=== PATIENT | female | born 1975 | race Caucasian/White ===

== ENCOUNTER 2020-08-18 23:09 | Emergency (ER) | payer OTHER, MEDICAID, SELFPAY ==
[2020-08-18 23:15] VITALS: BP 100/44; PULSE 150; RESP 21; TEMP 38.7; O2SAT 100
--- NOTE | 2020-08-18 23:30 | ED_ITS ---
HPI - General Adult General Chief complaint: Fever Stated complaint: had UTI, back pain, chills Time Seen by Provider: 08/18/20 23:17 Source: patient Mode of arrival: Ambulatory Limitations: no limitations History of Present Illness HPI narrative: 45-year-old female who has had UTI like symptoms for approximately 10 days here for evaluation of just several hours of a fairly sudden onset of chills and body aches and shaking. She continues to have dysuria. She states she has had symptoms like this in the past been normal she self medicates at home with [id number] medicines and her symptoms seemed to improve. That has not been happening this time. He also has right-sided back pain. She did take some Tylenol and ibuprofen and feels that the back pain has improved somewhat. Her chills have improved somewhat but she still feels fevers. She denies any bowel symptoms or vaginal symptoms. No nausea or vomiting. Related Data Previous Rx's Medication Instructions Recorded ondansetron 4 mg PO Q6H PRN #10 tab 08/19/20 sulfamethoxazole-trimethoprim 1 tab PO BID 14 Days #28 tab 08/19/20 [Bactrim DS] Allergies Allergy/AdvReac Type Severity Reaction Status Date / Time No Known Drug Allergies Allergy Verified 08/18/20 23:46 Review of Systems Constitutional Constitutional: Reports chills, Reports fever(s) and Reports malaise Cardiovascular Cardiovascular: Denies chest pain and Denies dyspnea Respiratory Respiratory: Denies dyspnea Gastrointestinal Gastrointestinal: Denies abdominal pain, Denies nausea and Denies vomiting Genitourinary Genitourinary: Reports dysuria, Reports urinary hesitancy and Reports urinary urgency Genitourinary: Reports dysuria, Reports urinary hesitancy, Reports urinary urgency and Denies vaginal discharge Musculoskeletal Musculoskeletal: Denies arthralgias and Denies myalgias Integumentary/Breasts Skin/Breast: Denies rash Neurologic Neurologic: Denies behavioral changes Psychiatric Psychiatric: Denies behavioral changes Hematologic/Lymphatic Hematologic/Lymphatic: Denies easy bleeding and Denies easy bruising Allergic/Immunologic Allergic/Immunologic: Denies urticaria Patient History Medical History Healthy adult (Acute) Social History Smoking Status: Current every day smoker Smoking Status: Current every day smoker alcohol intake frequency: a few times a month Substance Use Type: does not use Exam Initial Vital Signs Initial Vital Signs: Vital Signs Temperature 101.7 F H 08/18/20 23:15 Pulse Rate 150 H 08/18/20 23:15 Respiratory Rate 21 08/18/20 23:15 Blood Pressure 100/44 L 08/18/20 23:15 Pulse Oximetry 100 08/18/20 23:15 Const General: cooperative and comfortable Limitations: mental status not altered HENMT Head: normal to inspection and normocephalic Resp Effort & Inspection: normal respiratory effort Auscultation: clear to auscultation bilaterally Cardio Rate: tachycardic Rhythm: regular rhythm Pulses: radial pulses present GI Inspection: non-distended Palpation: soft Back/Spine/Pelvis Back: CVA tenderness right Skin Lesions: no lesions Rashes: no rashes Neuro General: patient alert, patient awake and patient oriented x3 Cognition: normal cognition Speech: speech normal Extrem General: normal to inspection and capillary refill normal Psych Appearance: grossly normal and well kempt Course Orders Ordered: ED Orders 08/18/20 23:25 Complete Blood Count AUTO DIFF Stat Comprehensive Metabolic Panel Stat Lactate (Lactic Acid) Stat Lipase Stat Procalcitonin Stat 08/18/20 23:28 EKG-12 Lead Stat 08/18/20 23:34 Test Urine Stat 08/18/20 23:42 Urinalysis and Microscopic Stat Urine Culture Stat 08/18/20 23:43 Blood Culture Stat Discontinued Medications Acetaminophen (Tylenol) 650 mg PO NOW ONE Stop: 08/18/20 23:27 Last Admin: 08/18/20 23:44 Dose: 650 mg Documented by: SOCO Sodium Chloride (Normal Saline 0.9%) 1,000 mls @ 1,000 mls/hr IV BOLUS ONE Stop: 08/19/20 00:25 Last Infusion: 08/19/20 00:56 Dose: 0 mls/hr Documented by: Admin: 08/18/20 23:45 Dose: 1,000 mls/hr Documented by: SOCO Ceftriaxone Sodium/Dextrose (Rocephin) 1 gm in 50 mls @ 100 mls/hr IV NOW ONE Stop: 08/19/20 00:05 Last Infusion: 08/19/20 00:20 Dose: 0 mls/hr Documented by: Admin: 08/18/20 23:44 Dose: 100 mls/hr Documented by: SOCO Vital Signs Vital signs: Vital Signs - 8 hr 08/18/20 23:15 08/19/20 00:25 08/19/20 00:30 Temperature 101.7 F H 99.3 F Pulse Rate 150 H 110 H 111 H Respiratory Rate 21 Blood Pressure 100/44 L 109/53 L 111/55 L Pulse Oximetry 100 99 99 08/19/20 00:50 Temperature 99.3 F Pulse Rate Respiratory Rate Blood Pressure Pulse Oximetry Medical Decision Making Lab Data Lab results reviewed: Yes I reviewed the patient's lab results. Result diagrams: 08/18/20 23:25 08/18/20 23:25 Labs: Lab Results 08/18/20 08/18/20 08/18/20 Range/Units 23:25 23:25 23:25 WBC 10.0 (4.5-11.0) X10^3/uL RBC 4.14 (4.0-5.2) X10^6/uL Hgb 13.0 (12.0-16.0) g/dL Hct 38.0 (36-46) % MCV 91.6 (80-100) fL MCH 31.4 (26-34) PG MCHC 34.3 (30-36) % RDW 12.0 (11.6-14.8) % Plt Count 183 (150-400) X10^3/uL Neut % (Auto) 81.7 H (50-75) % Lymph % (Auto) 15.5 L (25-40) % [place] % (Auto) 2.2 L (3-14) % Eos % (Auto) 0.2 L (2-4) % Baso % (Auto) 0.4 (0-2) % Neut # (Auto) 8200 H (4551-8773) /uL Lymph # (Auto) 1600 (4613-5058) /uL [place] # (Auto) 200 (0-900) /uL Eos # (Auto) 0 (0-450) /uL Baso # (Auto) 0 (0-100) /uL Sodium 138 (137-145) mmol/L Potassium 3.7 (3.4-5.1) mmol/L Chloride 105 (98-107) mmol/L Carbon Dioxide 26 (22-32) mmol/L BUN 11 (7-17) mg/dL Creatinine 0.58 (0.52-1.04) mg/dL Estimated GFR > 60.0 (>60) mL/min BUN/Creatinine Ratio 19.0 (6-22) Glucose 113 H (70-100) mg/dL Lactate (0.7-2.1) mmol/L Calcium 9.3 (8.4-10.2) mg/dL Total Bilirubin 0.7 (0.2-1.3) mg/dL AST 82 H (14-36) IU/L ALT 82 H (<35) IU/L Alkaline Phosphatase 59 (38-126) U/L Total Protein 7.8 (6.3-8.2) g/dL Albumin 4.5 (3.5-5.0) g/dL Globulin 3.3 (1.7-4.1) g/dL Albumin/Globulin Ratio 1.4 (1.0-2.8) Lipase 94 (23-300) U/L Procalcitonin 0.06 (<0.5) ng/mL Urine Color Urine Appearance Urine pH (4.5-8.0) Ur Specific [place] (1.000-1.035) Urine Protein (Negative) Urine Glucose (UA) (Negative) g/dL Urine Ketones (NEGATIVE) Urine Occult Blood (Negative) Urine Nitrate (Negative) Urine Bilirubin (NEGATIVE) Urine Urobilinogen (0.2) E.U./dL Ur Leukocyte Esterase (NEGATIVE) Urine RBC (0-5/HPF) Urine WBC (0-5/HPF) Ur Squamous Epith Cells (0-5/HPF) Urine Bacteria (None) Ur Culture Indicated? Micro UA Comment Urine Test (Negative) 08/18/20 08/18/20 08/18/20 Range/Units 23:25 23:34 23:42 WBC (4.5-11.0) X10^3/uL RBC (4.0-5.2) X10^6/uL Hgb (12.0-16.0) g/dL Hct (36-46) % MCV (80-100) fL MCH (26-34) PG MCHC (30-36) % RDW (11.6-14.8) % Plt Count (150-400) X10^3/uL Neut % (Auto) (50-75) % Lymph % (Auto) (25-40) % [place] % (Auto) (3-14) % Eos % (Auto) (2-4) % Baso % (Auto) (0-2) % Neut # (Auto) (5670-5945) /uL Lymph # (Auto) (4716-5711) /uL [place] # (Auto) (0-900) /uL Eos # (Auto) (0-450) /uL Baso # (Auto) (0-100) /uL Sodium (137-145) mmol/L Potassium (3.4-5.1) mmol/L Chloride (98-107) mmol/L Carbon Dioxide (22-32) mmol/L BUN (7-17) mg/dL Creatinine (0.52-1.04) mg/dL Estimated GFR (>60) mL/min BUN/Creatinine Ratio (6-22) Glucose (70-100) mg/dL Lactate 1.1 (0.7-2.1) mmol/L Calcium (8.4-10.2) mg/dL Total Bilirubin (0.2-1.3) mg/dL AST (14-36) IU/L ALT (<35) IU/L Alkaline Phosphatase (38-126) U/L Total Protein (6.3-8.2) g/dL Albumin (3.5-5.0) g/dL Globulin (1.7-4.1) g/dL Albumin/Globulin Ratio (1.0-2.8) Lipase (23-300) U/L Procalcitonin (<0.5) ng/mL Urine Color Yellow Urine Appearance Cloudy Urine pH 5.0 (4.5-8.0) Ur Specific [place] 1.020 (1.000-1.035) Urine Protein 1+ H (Negative) Urine Glucose (UA) Negative (Negative) g/dL Urine Ketones Negative (NEGATIVE) Urine Occult Blood 3+ H (Negative) Urine Nitrate Negative (Negative) Urine Bilirubin Negative (NEGATIVE) Urine Urobilinogen 0.2 (0.2) E.U./dL Ur Leukocyte Esterase 2+ H (NEGATIVE) Urine RBC 1-5/hpf (0-5/HPF) Urine WBC 30-100/hpf H (0-5/HPF) Ur Squamous Epith Cells 1-5 /hpf (0-5/HPF) Urine Bacteria Many (>30) H (None) Ur Culture Indicated? Culture not indicate Micro UA Comment * Urine Test Negative (Negative) ECG Data Attestation: I personally reviewed and interpreted this ECG as follows: Prior ECG tracings: not available for review Interpretation: Sinus tachycardia Ventricular rate of 135 Normal axis Normal QRS Normal QTC No ST T wave changes MDM Narrative Medical decision making narrative: Patient's urinalysis is concerning for infection. A culture was obtained and was pending at the time of discharge. Patient was informed that if the culture grows out a bacteria that was not susceptible to the antibiotics she was discharged home on that we would contact her to let her know. Her lactate was unremarkable. Does not have a leukocytosis. She does have right-sided flank pain and given her urinalysis and other symptoms I do have suspicion for pyelonephritis. She has not had any nausea. She tolerated oral intake here in the ER. Was febrile and tachycardic upon arrival however this improved with Tylenol. She states she does feel better after the fluids and Tylenol. Had a long discussion with her and her regarding her symptoms. Will discharge home with antibiotics and nausea medicine to take as needed. She was given return precautions and follow-up instructions. She expressed understanding and agreement. Discharge Plan Departure Patient Disposition: Home Clinical Impression: Pyelonephritis Discharge Date/Time: 08/19/20 01:02 Instructions: DI for Kidney Infection Activity Restrictions/Additional Instructions: Recommend that you take the antibiotics as directed and the nausea medication as needed. Be sure to increase your fluid intake. You can take Tylenol and/or ibuprofen for any discomfort. Return to the emergency department for any new or worsening symptoms Prescriptions: New sulfamethoxazole-trimethoprim [Bactrim DS] 800-160 mg tablet 1 tab PO BID 14 Days Qty: 28 RF: 0 ondansetron 4 mg tablet,disintegrating 4 mg PO Q6H PRN (Reason: nausea and vomiting) Qty: 10 RF: 0
--- NOTE | 2020-08-18 23:35 | PC.NURSE ---
Patient reports noticing burning, urgency and frequency about on week ago. Thought she was on the mend but began to have flank pain which was manageable. Today started getting rigors/chills and fever.
[2020-08-18 23:38] LABS: Add Manual Diff / Slide Review NO; Basophils Absolute Auto 0 /uL (0-100); Basophils Percent Auto 0.4 % (0-2); Eosinophils Absolute Auto 0 /uL (0-450); Eosinophils Percent Auto 0.2 % (2-4); Lymphocytes Absolute Auto 1600 /uL (1100-4500); Lymphocytes Percent Auto 15.5 % (25-40); Mean Corpuscular HGB Conc 34.3 % (30-36); Mean Corpuscular Hemoglobin 31.4 PG (26-34); Mean Corpuscular Volume 91.6 fL (80-100); Monocytes Absolute Auto 200 /uL (0-900); Monocytes Percent Auto 2.2 % (3-14); Neutrophils Absolute Auto 8200 /uL (1500-7000); Neutrophils Percent Auto 81.7 % (50-75); Platelet Count 183 X10^3/uL (150-400); Red Blood Cell Count 4.14 X10^6/uL (4.0-5.2)
[2020-08-18] MEDS: ACETAMINOPHEN 325 MG TABLET 650 MG PO (23:44)
[2020-08-18] MEDS: CEFTRIAXONE 1 GM/50 ML FROZ.PIGGY IV (23:44)
[2020-08-18] MEDS: SODIUM CHLORIDE 0.9% 1,000 ML 1000 ML IV (23:45)
[2020-08-18 23:46] LABS: Lactate (Lactic Acid) 1.1 mmol/L (0.7-2.1)
[2020-08-18 23:47] LABS: Bilirubin Urine UA NEGATIVE (NEGATIVE); Color Urine UA YELLOW; Glucose Urine UA NEGATIVE (Negative); Ketones Urine UA NEGATIVE (NEGATIVE); Leukocyte Esterase Urine UA 2+ (NEGATIVE); Nitrite Urine UA NEGATIVE (Negative); Occult Blood Urine UA 3+ (Negative); Protein Urine UA 1+ (Negative); Urobilinogen Urine UA 0.2 E.U./dL (0.2)
[2020-08-18 23:49] LABS: Alanine Aminotransferase 82 IU/L (<35); Albumin 4.5 g/dL (3.5-5.0); Albumin Globulin Ratio 1.4 (1.0-2.8); Alkaline Phosphatase 59 U/L (38-126); Aspartate Aminotransferase 82 IU/L (14-36); Bilirubin Total 0.7 mg/dL (0.2-1.3); Blood Urea Nitrogen 11 mg/dL (7-17); Calcium 9.3 mg/dL (8.4-10.2); Carbon Dioxide 26 mmol/L (22-32); Chloride 105 mmol/L (98-107); Estimated Glomerular Filt Rate > 60.0 mL/min (>60); Globulin 3.3 g/dL (1.7-4.1); Glucose 113 mg/dL (70-100); HEMOLYSIS < 15 (0-50); Lipase 94 U/L (23-300); Potassium 3.7 mmol/L (3.4-5.1); Sodium 138 mmol/L (137-145); Total Protein 7.8 g/dL (6.3-8.2)
[2020-08-18 23:49] LABS: Appearance Urine UA Cloudy
[2020-08-18 23:50] LABS: Pregnancy Test Urine Negative (Negative)
[2020-08-18 23:57] LABS: RBC Urine 1-5/HPF (0-5/HPF); WBC Urine 30-100/HPF (0-5/HPF)
[2020-08-18 23:58] LABS: Bacteria Urine Many (>30); Squamous Epithelial Cell Urine 1-5 /HPF (0-5/HPF)
[2020-08-19 00:05] LABS: Procalcitonin 0.06 ng/mL (<0.5)
[2020-08-19 00:25] VITALS: BP 109/53; PULSE 110; O2SAT 99
[2020-08-19 00:30] VITALS: BP 111/55; PULSE 111; TEMP 37.4; O2SAT 99
[2020-08-19 00:50] VITALS: TEMP 37.4
== END 2020-08-19 01:02 | disposition home or self-care (01) ==
PROVIDERS: Emergency Provider Emergency Medicine
DX: N12 Tubulo-interstitial nephritis, not specified as acute or chronic (principal); M54.9 Dorsalgia, unspecified; R50.9 Fever, unspecified; R00.0 Tachycardia, unspecified; R30.0 Dysuria; R39.15 Urgency of urination
CPT/HCPCS: 36415; 80053; 81001; 81025; 83605; 83690; 84145; 85025; 87040; 87077; 87086; 87186; 93005; 96361; 96365; 99284

== ENCOUNTER → 2021-09-21 11:05 | Outpatient (CLI) | payer OTHER, MEDICAID, SELFPAY ==
--- NOTE | 2021-09-21 11:06 | DI.US.S_ITS ---
PROCEDURE: US OB <= 14 WEEKS FETUS INDICATIONS: DATING OUTSIDE/PRIOR DATING DATA: Last menstrual period (LMP): 07/25/2021 LMP-based estimated date of delivery (PAULINA): 05/01/2022 First dating scan (date and location): 09/21/2021 Estimated date of delivery (PAULINA) from first dating scan: 05/01/2022 TECHNIQUE: Real-time scanning was performed of the fetus and maternal pelvic organs, with image documentation. Endovaginal scanning was also performed to better visualize the fetus and maternal ovaries. COMPARISON: None. FINDINGS: Embryo: Single intrauterine gestational sac is seen with fetus and yolk sac seen. [place]-rump length measures 1.8 cm. Estimated gestational age is 8 weeks, 2 days. Heart rate: 192 beats per minute. Hypoechoic area is noted in left myometrium measures 2.1 x 1.8 x 0.7 cm in size and may represent a small perigestational hemorrhage. Measurement variability in dating: +/- 4 weeks by LMP, +/- 7 days by mean sac diameter (use before 6 weeks gestation if crown-rump length not able to be measured), +/- 5 days by crown-rump length (up to 8 weeks 6 days gestation), +/- 7 days by crown-rump length (up to 13 weeks 6 days gestation). Maternal organs: Right ovary is visualized and is within normal limits. Possible small corpus luteum in left ovary is noted. IMPRESSION: 1. Single live intrauterine with fetus and yolk sac seen. heart rate is 192 beats per minute. Estimated gestational age based on current study is 8 weeks, 2 days. 2. Small perigestational hemorrhage as above. Possible small corpus luteum in left ovary. Dictated by: Ino Marcano M.D. on 09/21/2021 at 16:03 Approved by: Ino Marcano M.D. on 09/21/2021 at 16:05
== END ==
PROVIDERS: Referring Provider Obstetrics & Gynecology; Visit Provider Obstetrics & Gynecology
DX: Z34.81 Encounter for supervision of other normal pregnancy, first trimester (principal); Z3A.08 8 weeks gestation of pregnancy
CPT/HCPCS: 76801; 76817

== ENCOUNTER 2021-10-08 17:40 | Emergency (ER) | payer OTHER, MEDICAID, SELFPAY ==
--- NOTE | 2021-10-08 17:48 | DI.US.S_ITS ---
PROCEDURE: US OB <= 14 WEEKS FETUS INDICATIONS: CRAMPING, HEAVY BLEEDING OUTSIDE/PRIOR DATING DATA: Last menstrual period (LMP): July 25, 2021. LMP-based estimated date of delivery (PAULINA): May 01, 2022. First dating scan (date and location): [facility]; September 21, 2021. Estimated date of delivery (PAULINA) from first dating scan: May 01, 2022. TECHNIQUE: Real-time scanning was performed of the fetus and maternal pelvic organs, with image documentation. Endovaginal scanning was also performed to better visualize the fetus and maternal ovaries. COMPARISON: [facility], US, US OB <= 14 WEEKS FETUS, 09/21/2021, 11:23. FINDINGS: Embryo: No sonographic evidence of a pole. Maternal organs: Thickening of the endometrium, measuring 3.1 cm, most consistent with blood products. The right ovary is not visualized. The left ovary is within normal limits. IMPRESSION: Thickening of the endometrium, most consistent with blood products and compatible with missed . We strive to produce accurate, complete, and clear reports of imaging services. To assist us in improving patient care, this report was composed using standard report templates and voice recognition software. Therefore, it may contain abnormal punctuation, insertions and/or omissions. Occasional wrong-word or sound-alike substitutions may occur. Though we review the report and make efforts to correct it, we do recommend that the report be read carefully in proper context to recognize any text inaccuracies. Dictated by: Dominik Rice M.D. on 10/08/2021 at 19:27 Approved by: Dominik Rice M.D. on 10/08/2021 at 19:30
[2021-10-08 17:50] VITALS: BP 126/59; PULSE 85; RESP 14; TEMP 36.4; O2SAT 100; BMI 22.0
--- NOTE | 2021-10-08 18:04 | ED_ITS ---
HPI - General Chief complaint: Vaginal Bleeding Stated complaint: 11 weeks , cramping and bleeding Time Seen by Provider: 10/08/21 18:04 Source: patient Mode of arrival: Ambulatory Limitations: no limitations History of Present Illness HPI Narrative: 46F former smoker without significant medical history presents with her and a chief complaint of heavy vaginal bleeding with the passage of clots and pelvic cramping becoming severe this evening. She is a at 11 weeks and has recently established with a local Ob. She states she has been having some minimal spotting over the past few days and had initial ultrasound a few weeks ago. She has no fever or chills. She denies any dizziness, weakness or lightheadedness. She states that she is bleeding heavily, certainly through more than 1 pad per hour with heavy clots but denies any tissue. Related Data Home Medications Medication Instructions Recorded Confirmed prenat.vits,marcos,atj-[id number] 1 tab PO DAILY 10/06/21 10/06/21 Previous Rx's Medication Instructions Recorded ondansetron 4 mg disintegrating 4 mg PO Q6H PRN #10 tab 08/19/20 tablet Allergies Allergy/AdvReac Type Severity Reaction Status Date / Time No Known Drug Allergies Allergy Verified 10/08/21 17:50 Review of Systems Review of Systems Narrative: GENERAL: Denies chills, fatigue, malaise, fever, sweats. HEENT: Denies sinus pain, ear pain, sore throat, difficulty swallowing, dizziness. RESPIRATORY: Denies dyspnea, cough, wheezing, hemoptysis, sputum. CARDIOVASCULAR: Denies chest pain, palpitations, orthopnea, edema, GASTROINTESTINAL: Denies nausea, vomiting, abdominal pain, diarrhea, constipation, melena. : See HPI MUSCULOSKELETAL: denies weakness, joint pain, or bony pain SKIN: Denies rash, skin lesions, or other NEUROLOGIC: Denies weakness, headache, numbness, change in speech, confusion, seizures, incoordination. PSYCHIATRIC: No concerning psychosocial issues. 12 point review of systems is negative except for those stated above Exam Narrative Exam Narrative: GENERAL: [46 year old patient appears stated age. Well-developed patient, in mild distress. Tearful, obviously uncomfortable HEAD: Atraumatic. Normocephalic. EYES: Pupils equal round and reactive. Extraocular motions intact. No scleral ic terus. No injection or drainage. ENT: Nose without bleeding, purulent drainage. Throat without erythema, tonsillar hypertrophy or exudate. Airway patent. NECK: Trachea midline. Non tender CARDIOVASCULAR: Regular rate and rhythm without murmurs, gallops, or rubs. RESPIRATORY: Clear to auscultation. Breath sounds equal bilaterally. No wheezes, rales, or rhonchi. GASTROINTESTINAL: Abdomen soft, miold tenderness in suprapubic region, nondistended. EXTREMITIES: No edema or joint tenderness. BACK: Nontender without deformity or crepitance. No flank tenderness. NEURO: AOx3. SKIN: No rash or erythema of visible areas Initial Vital Signs Initial Vital Signs: Vital Signs Temperature 97.6 F 10/08/21 17:50 Pulse Rate 85 10/08/21 17:50 Respiratory Rate 14 10/08/21 17:50 Blood Pressure 126/59 L 10/08/21 17:50 Pulse Oximetry 100 10/08/21 17:50 Course Orders Ordered: ED Orders 10/08/21 17:48 US OB <= 14 weeks fetus Stat 10/08/21 18:30 ABO RH Type Stat Complete Blood Count AUTO DIFF Stat Comprehensive Metabolic Panel Stat HCG Quantitative /Beta subunit Stat 10/08/21 18:48 Urine Microscopic Stat 10/08/21 21:17 HH [Hemoglobin and Hematocrit] Stat Discontinued Medications Ketorolac Tromethamine (Ketorolac 30 Mg/Ml Vial) 15 mg IV NOW ONE Stop: 10/08/21 21:57 Last Admin: 10/08/21 22:05 Dose: Not Given Documented by: AMY Ketorolac Tromethamine (Ketorolac 30 Mg/Ml Vial) 30 mg IM NOW ONE Stop: 10/08/21 22:07 Last Admin: 10/08/21 22:09 Dose: 30 mg Documented by: AMY Misoprostol (Misoprostol 200 Mcg Tablet) 800 mcg PO NOW ONE Stop: 10/08/21 19:43 Last Admin: 10/08/21 20:10 Dose: 800 mcg Documented by: AMY Rho Immune Globulin (Rho(D) Immune Globulin 1,500 Unit Syringe) 1,500 unit IM NOW ONE Stop: 10/08/21 19:41 Last Admin: 10/08/21 20:10 Dose: 1,500 unit Documented by: AMY Reevaluation(s) Reevaluation #1: bleeding has slowed significantly after above stated therapies. Patient no longer bleeding while lying flat, she does passed some small clots when she sta nds up however. She does have episodes of cramping but largely is feeling better. Consultations Consultation #1: discussed with manager of employee relations OB (Larry) upon receipt of US. Given stable vitals and H/H she recommends Rhogam, Cytotec 800 PO, repeat H/H in 1-2 hours, pain control and call back Vital Signs Vital signs: Vital Signs - 8 hr 10/08/21 17:50 10/08/21 20:52 10/08/21 21:17 Temperature 97.6 F 98 F Pulse Rate 85 82 Respiratory Rate 14 18 Blood Pressure 126/59 L 127/58 L Pulse Oximetry 100 98 10/08/21 22:17 Temperature Pulse Rate 82 Respiratory Rate 16 Blood Pressure 113/48 L Pulse Oximetry 99 MDM - OB/Uterine Contractions Lab Data Result diagrams: 10/08/21 21:17 10/08/21 18:30 Labs: Lab Results 10/08/21 10/08/21 10/08/21 Range/Units 18:30 18:30 18:30 WBC 8.3 (4.5-11.0) X10^3/uL RBC 3.98 L (4.0-5.2) X10^6/uL Hgb 12.7 (12.0-16.0) g/dL Hct 36.0 (36-46) % MCV 90.4 (80-100) fL MCH 31.9 (26-34) PG MCHC 35.3 (30-36) % RDW 13.0 (11.6-14.8) % Plt Count 178 (150-400) X10^3/uL Neut % (Auto) 60.7 (50-75) % Lymph % (Auto) 31.2 (25-40) % [place] % (Auto) 5.6 (3-14) % Eos % (Auto) 1.4 L (2-4) % Baso % (Auto) 1.1 (0-2) % Neut # (Auto) 5000 (0532-8650) /uL Lymph # (Auto) 2600 (7796-9915) /uL [place] # (Auto) 500 (0-900) /uL Eos # (Auto) 100 (0-450) /uL Baso # (Auto) 100 (0-100) /uL Sodium 141 (137-145) mmol/L Potassium 3.4 (3.4-5.1) mmol/L Chloride 108 H (98-107) mmol/L Carbon Dioxide 25 (22-32) mmol/L BUN 8 (7-17) mg/dL Creatinine 0.50 L (0.52-1.04) mg/dL Estimated GFR > 60.0 (>60) mL/min BUN/Creatinine Ratio 16.0 (6-22) Glucose 97 (70-100) mg/dL Calcium 9.4 (8.4-10.2) mg/dL Total Bilirubin 0.3 (0.2-1.3) mg/dL AST 21 (14-36) IU/L ALT 23 (<35) IU/L Alkaline Phosphatase 35 L (38-126) U/L Total Protein 7.1 (6.3-8.2) g/dL Albumin 4.4 (3.5-5.0) g/dL Globulin 2.7 (1.7-4.1) g/dL Albumin/Globulin Ratio 1.6 (1.0-2.8) HCG, Quant 3030 mIU/mL Urine RBC (0-5/HPF) Urine WBC (0-5/HPF) Urine Bacteria (None) Ur Culture Indicated? Blood Type O Negative 10/08/21 10/08/21 Range/Units 18:48 21:17 WBC (4.5-11.0) X10^3/uL RBC (4.0-5.2) X10^6/uL Hgb 12.4 (12.0-16.0) g/dL Hct 35.6 L (36-46) % MCV (80-100) fL MCH (26-34) PG MCHC (30-36) % RDW (11.6-14.8) % Plt Count (150-400) X10^3/uL Neut % (Auto) (50-75) % Lymph % (Auto) (25-40) % [place] % (Auto) (3-14) % Eos % (Auto) (2-4) % Baso % (Auto) (0-2) % Neut # (Auto) (7956-3531) /uL Lymph # (Auto) (9175-1639) /uL [place] # (Auto) (0-900) /uL Eos # (Auto) (0-450) /uL Baso # (Auto) (0-100) /uL Sodium (137-145) mmol/L Potassium (3.4-5.1) mmol/L Chloride (98-107) mmol/L Carbon Dioxide (22-32) mmol/L BUN (7-17) mg/dL Creatinine (0.52-1.04) mg/dL Estimated GFR (>60) mL/min BUN/Creatinine Ratio (6-22) Glucose (70-100) mg/dL Calcium (8.4-10.2) mg/dL Total Bilirubin (0.2-1.3) mg/dL AST (14-36) IU/L ALT (<35) IU/L Alkaline Phosphatase (38-126) U/L Total Protein (6.3-8.2) g/dL Albumin (3.5-5.0) g/dL Globulin (1.7-4.1) g/dL Albumin/Globulin Ratio (1.0-2.8) HCG, Quant mIU/mL Urine RBC 30-100/hpf H (0-5/HPF) Urine WBC None seen (0-5/HPF) Urine Bacteria None seen (None) Ur Culture Indicated? Cult not indicated Blood Type Urine Dip Bedside Urine Glucose Negative Bedside Urine Bilirubin - Negative Bedside Urine Ketone - Negative Urine Specific [place] 1.010 Bedside Urine Occult Blood +++ Bedside Urine pH 6.0 Bedside Urine Protein ++ 100 Bedside Urine Urobilinogen - Negative Bedside Urine Nitrite - Negative Bedside Urine Leukocytes + 70 Esterase MDM Narrative Medical decision making narrative: Patient is at 11 weeks with evidence of heavy bleeding in the aftermath of a missed AB. Ultrasound demonstrates no retained products or IUP, only evidence of clot. Patient H and H remained stable, vitals improved, bleeding slowed significantly and no indication for D&C. She is given extensive return precautions and questions answered to her apparent satisfaction Discharge Plan Departure Patient Disposition: Home Clinical Impression: , missed Instructions: DI for Miscarriage Activity Restrictions/Additional Instructions: *You have been diagnosed with [pelvic cramping and bleeding which is unfortunately due to a miscarriage in the process. *What to do: *Please continue to take your regular medications as directed. [ ] New medication prescriptions sent to your pharmacy: [ ] [ ] New medication written as a paper prescription [ x] No new medications given *Please follow up with Dr. Castro' office in 2-3 days, call for an appointment. Let them know you were seen in the Emergency Department and that we ask that you be seen in follow up. We will electronically transmit a record of today's note if your PCP is in our system *Return to Emergency Department if you should have any new, worsening or concerning symptoms, such as [fever greater than 101 F, dizziness, lightheadedn ess, unexplained sweating, significant bleeding (saturating 1 pad or more per hour), or other bothersome symptoms Prescriptions: No Action prenat.vits,marcos,[id number] Tablet 1 tab PO DAILY 0RF ondansetron 4 mg tablet,disintegrating 4 mg PO Q6H PRN (Reason: nausea and vomiting) Qty: 10 0RF Referrals: Melyssa Castro MD [Physician] -
[2021-10-08 18:39] LABS: Add Manual Diff / Slide Review NO; Basophils Absolute Auto 100 /uL (0-100); Basophils Percent Auto 1.1 % (0-2); Eosinophils Absolute Auto 100 /uL (0-450); Eosinophils Percent Auto 1.4 % (2-4); Hemoglobin 12.7 g/dL (12.0-16.0); Lymphocytes Absolute Auto 2600 /uL (1100-4500); Lymphocytes Percent Auto 31.2 % (25-40); Mean Corpuscular HGB Conc 35.3 % (30-36); Mean Corpuscular Hemoglobin 31.9 PG (26-34); Mean Corpuscular Volume 90.4 fL (80-100); Monocytes Absolute Auto 500 /uL (0-900); Monocytes Percent Auto 5.6 % (3-14); Neutrophils Absolute Auto 5000 /uL (1500-7000); Neutrophils Percent Auto 60.7 % (50-75); Platelet Count 178 X10^3/uL (150-400); Red Blood Cell Count 3.98 X10^6/uL (4.0-5.2); White Blood Cell Count 8.3 X10^3/uL (4.5-11.0)
[2021-10-08 18:52] LABS: Alanine Aminotransferase 23 IU/L (<35); Albumin 4.4 g/dL (3.5-5.0); Albumin Globulin Ratio 1.6 (1.0-2.8); Alkaline Phosphatase 35 U/L (38-126); Aspartate Aminotransferase 21 IU/L (14-36); Bilirubin Total 0.3 mg/dL (0.2-1.3); Blood Urea Nitrogen 8 mg/dL (7-17); Calcium 9.4 mg/dL (8.4-10.2); Carbon Dioxide 25 mmol/L (22-32); Chloride 108 mmol/L (98-107); Estimated Glomerular Filt Rate > 60.0 mL/min (>60); Globulin 2.7 g/dL (1.7-4.1); Glucose 97 mg/dL (70-100); HEMOLYSIS < 15 (0-50); Potassium 3.4 mmol/L (3.4-5.1); Sodium 141 mmol/L (137-145); Total Protein 7.1 g/dL (6.3-8.2)
[2021-10-08 19:04] LABS: Bacteria Urine None Seen; Culture Indicated Urine Cult Not Indicated; RBC Urine 30-100/HPF (0-5/HPF); WBC Urine None Seen (0-5/HPF)
[2021-10-08 19:12] LABS: HCG Quantitative /Beta subunit 3030 mIU/mL
[2021-10-08] MEDS: RHO(D) IMMUNE GLOBULIN 1,500 UNIT SYRINGE 1500 UNIT IM (20:10)
[2021-10-08] MEDS: miSOPROStoL 200 MCG TABLET 800 MCG PO (20:10)
--- NOTE | 2021-10-08 20:47 | PC.NURSE ---
Pt reports passing blood and clots during trips to the bathroom.
[2021-10-08 20:52] VITALS: BP 127/58; PULSE 82; RESP 18; O2SAT 98
[2021-10-08 21:17] VITALS: TEMP 36.6
[2021-10-08 21:28] LABS: Hematocrit 35.6 % (36-46); Hemoglobin 12.4 g/dL (12.0-16.0)
[2021-10-08] MEDS: KETOROLAC 30 MG/ML VIAL IM (22:09)
[2021-10-08 22:17] VITALS: BP 113/48; PULSE 82; RESP 16; O2SAT 99
== END 2021-10-08 22:30 | disposition home or self-care (01) ==
PROVIDERS: Emergency Provider Emergency Medicine
DX: O02.1 Missed abortion (principal); Z3A.11 11 weeks gestation of pregnancy
CPT/HCPCS: 36415; 76801; 76830; 80053; 81003; 81015; 84702; 85014; 85018; 85025; 86900; 86901; 96372; 99284; J1885; J2790; S0191

== ENCOUNTER 2021-10-09 02:16 | Observation (INO) | payer OTHER, MEDICAID, SELFPAY ==
[2021-10-09] VITALS (24 sets, daily range): BP systolic 84–120; BP diastolic 46–66; PULSE 74–101; RESP 12–18; TEMP 36.3–36.9; O2SAT 99–100; BMI 22.1; BMI 22.0
--- NOTE | 2021-10-09 | PATH_ITS ---
[facility] Accession Number: [id number] . 01 Material submitted: . body - UTERINE CONTENTS . 01 Clinical history: . VAGINAL BLEED/MISCARRIAGE . 02 Diagnosis: Uterine Contents: Products of conception identified. [facility] 10/12/2021 1123 Local . 02 Electronically signed: . Silvia Santizo MD, Pathologist NPI- [id number] . 01 Gross description: . The specimen is received in formalin, labeled uterine contents and consists of multiple gonzales-pink fragments of soft tissue and clotted blood measuring 9.0 x 8.0 x 3.0 cm in aggregate. No chorionic villi or parts are identified. Digital Forensic Examiner sections are submitted in cassettes A1-A4. ([id number]) /V 10/11/2021 0933 Local . 02 Pathologist provided ICD-10: O03.30 . 02 CPT . 249679 Performed at: 01 [facility] [address] [facility], [place], [place] [id number] MD Ming Espitia MD Phone: [phone] Performed at: 02 [facility] [address] [place], [place] [id number] MD Jennifer Brush MD Phone: [phone]
[2021-10-09] MEDS: SODIUM CHLORIDE 0.9% 1,000 ML 125 ML IV (02:30)
--- NOTE | 2021-10-09 02:40 | ED_ITS ---
HPI - Female Genitourinary General Chief complaint: OB/Uterine Contractions Stated complaint: Vaginal bleed/miscarriage Time Seen by Provider: 10/09/21 02:17 Source: patient and family Mode of arrival: EMS Limitations: no limitations History of Present Illness HPI Narrative: 46-year-old female returns by EMS for the 2nd time today for evaluation of heavy bleeding and a near syncopal episode. She had been at about 11 weeks and had some cramping and progressively worsening vaginal bleeding last evening. She was seen in the emergency department and observed for upwards of 5 hours and had very reassuring labs and vital signs. Ultrasound demonstrated a missed without any retained products or evidence of intrauterine . After consultation with on-call Ob the patient was given RhoGAM, Site attack and observed. Her bleeding slowed tremendously, she was given return precautions and sent home. She did okay for a few hours and then prior to calling EMS had an episode of very heavy vaginal bleeding and intense pain. The bleeding continues. She became very dizzy and lightheaded and nearly passed out. On arrival EMS found her to be diaphoretic and pale with a blood pressure in the 90s. Related Data Home Medications Medication Instructions Recorded Confirmed prenat.vits,marcos,[id number] 1 tab PO DAILY 10/06/21 10/06/21 Previous Rx's Medication Instructions Recorded ondansetron 4 mg disintegrating 4 mg PO Q6H PRN #10 tab 08/19/20 tablet doxycycline hyclate 100 mg capsule 100 mg PO BID 5 Days #10 cap 10/09/21 (Vibramycin) methylergonovine 0.2 mg tablet 0.2 mg PO TID 2 Days #6 tab 10/09/21 (Methergine) Allergies Allergy/AdvReac Type Severity Reaction Status Date / Time No Known Drug Allergies Allergy Verified 10/08/21 17:50 Review of Systems Review of Systems Narrative: GENERAL: Denies chills, fatigue, malaise, fever, sweats. HEENT: Denies sinus pain, ear pain, sore throat, difficulty swallowing, dizziness. RESPIRATORY: Denies dyspnea, cough, wheezing, hemoptysis, sputum. CARDIOVASCULAR: Denies chest pain, palpitations, orthopnea, edema, GASTROINTESTINAL: Denies nausea, vomiting, abdominal pain, diarrhea, constipation, melena. : See HPI MUSCULOSKELETAL: denies weakness, joint pain, or bony pain SKIN: Denies rash, skin lesions, or other NEUROLOGIC: Denies weakness, headache, numbness, change in speech, confusion, seizures, incoordination. PSYCHIATRIC: No concerning psychosocial issues. 12 point review of systems is negative except for those stated above Patient History Medical History delivery delivered Gestational diabetes Healthy adult Rh negative status during Surgical History [place] teeth extracted Family History Mother Preeclampsia Insulin resistance Father Status post cardiac surgery infant Myocardial infarction Grandmother No problems noted. Grandfather Emphysema lung Smoker Grandmother Cervical cancer Grandfather Family history unknown alcohol intake frequency: a few times a month Substance Use Type: does not use Exam Narrative Exam Narrative: GENERAL: [46 year old patient appears stated age. Ill-appearing pale and diaphoretic, tearful and obviously in distress HEAD: Atraumatic. Normocephalic. EYES: Pupils equal round and reactive. Pale conjunctiva Extraocular motions intact. No scleral icterus. No injection or drainage. ENT: Nose without bleeding, purulent drainage. Throat without erythema, tonsillar hypertrophy or exudate. Airway patent. NECK: Trachea midline. Non tender CARDIOVASCULAR: Regular rate and rhythm without murmurs, gallops, or rubs. RESPIRATORY: Clear to auscultation. Breath sounds equal bilaterally. No wheezes, rales, or rhonchi. GASTROINTESTINAL: Abdomen soft, non-tender, nondistended. PELVIC: Large amount of bright red blood in vaginal vault, poured out onto cart when speculum was inserted. Unable to view cervix.Performed with patient permission and assistance from female nursing crane rigger EXTREMITIES: No edema or joint tenderness. BACK: Nontender without deformity or crepitance. No flank tenderness. NEURO: AOx3. SKIN: No rash or erythema of visible areas Initial Vital Signs Initial Vital Signs: Vital Signs Pulse Rate 90 10/09/21 02:19 Blood Pressure 95/49 L 10/09/21 02:19 Pulse Oximetry 100 10/09/21 02:19 Course Orders Ordered: Discontinued Medications Cefazolin Sodium/Dextrose (Cefazolin 2 Gm/20 Ml Syringe) 2 gm IV NOW ONE Stop: 10/09/21 05:07 Last Admin: 10/09/21 05:41 Dose: 2 gm Documented by: NAMITA Fentanyl (Fentanyl 100 Mcg/2 Ml Inj) 50 mcg IV Q5M PRN PRN Reason: Pain, Moderate (4-6) Sodium Chloride (Normal Saline 0.9%) 1,000 mls @ 125 mls/hr IV CONT [facility] Last Infusion: 10/09/21 05:05 Dose: 0 mls/hr Documented by: Infusion: 10/09/21 03:05 Dose: 125 mls/hr Documented by: Infusion: 10/09/21 02:35 Dose: 1,000 mls/hr Documented by: Admin: 10/09/21 02:30 Dose: 125 mls/hr Documented by: PAT Tranexamic Acid 1,000 mg/ (Sodium Chloride) 100 mls @ 200 mls/hr IV NOW ONE Stop: 10/09/21 03:37 Last Infusion: 10/09/21 04:29 Dose: 0 mls/hr Documented by: Admin: 10/09/21 03:23 Dose: 200 mls/hr Documented by: PAT Lactated Ringer's (Lactated Ringers) 1,000 mls @ 100 mls/hr IV CONT [facility] Last Admin: 10/09/21 05:13 Dose: 100 mls/hr Documented by: MACK Lactated Ringer's (Lactated Ringers) 1,000 mls @ 120 mls/hr IV CONT [facility] Methylergonovine Maleate (Methylergonovine 0.2 Mg/Ml Vial) 0.2 mg IM NOW ONE Stop: 10/09/21 03:09 Last Admin: 10/09/21 03:34 Dose: 0.2 mg Documented by: PAT Metoclopramide HCl (Metoclopramide 10 Mg/2 Ml Inj) 10 mg IV NOW PRN PRN Reason: Nausea And Vomiting Ondansetron HCl (Ondansetron 4 Mg/2 Ml Inj) 4 mg IV NOW PRN PRN Reason: Nausea And Vomiting Oxytocin (Oxytocin 10 Unit/Ml Vial) 10 unit IM NOW ONE Stop: 10/09/21 03:11 Last Admin: 10/09/21 03:34 Dose: 10 unit Documented by: HGUBERN Consultations Consultation #1: upon completion of pelvic exam I placed a call to Dr. Maza (global program manager) to discuss history, physical, labs and recent imaging. He recommends TXA 1,000mg IV, Met hergine 0.2mg q4 until bleeding slows, and Pitocin 10U IM. He will come see patient Consultation #2: Dr. Maza has seen patient at bedside, performed his own pelvic and given patient's initial hesitation to go to the OR he ordered another US and repeat H/H. Vital Signs Vital signs: Vital Signs - 8 hr 10/09/21 02:19 10/09/21 02:25 10/09/21 02:30 Temperature 97.7 F Pulse Rate 90 86 84 Respiratory Rate 17 Blood Pressure 95/49 L 95/49 L Pulse Oximetry 100 100 100 10/09/21 02:37 10/09/21 02:45 10/09/21 02:50 Temperature Pulse Rate 84 79 78 Respiratory Rate Blood Pressure 84/47 L 88/52 L 89/55 L Pulse Oximetry 100 100 100 10/09/21 03:00 10/09/21 03:04 10/09/21 03:11 Temperature Pulse Rate 96 H 82 86 Respiratory Rate Blood Pressure 97/52 L 113/53 L Pulse Oximetry 100 100 100 10/09/21 03:20 10/09/21 03:30 10/09/21 03:40 Temperature Pulse Rate 74 74 92 H Respiratory Rate Blood Pressure 99/51 L 93/55 L 112/56 L Pulse Oximetry 100 100 100 10/09/21 03:50 10/09/21 04:00 10/09/21 04:10 Temperature Pulse Rate 90 96 H 96 H Respiratory Rate Blood Pressure 120/66 113/56 L 112/57 L Pulse Oximetry 100 100 100 10/09/21 04:20 10/09/21 04:30 Temperature Pulse Rate 86 97 H Respiratory Rate Blood Pressure 109/58 L 109/55 L Pulse Oximetry 100 100 MDM - Female Genitourinary Lab Data Result diagrams: 10/09/21 04:15 Labs: Lab Results 10/09/21 10/09/21 10/09/21 Range/Units 02:35 02:35 03:05 Hgb 9.9 L (12.0-16.0) g/dL Hct 29.2 L (36-46) % SARS-CoV-2 (PCR) Negative (Negative) Blood Type O Negative Antibody Screen Positive Antibody Identification Anti-D 10/09/21 Range/Units 04:15 Hgb 9.4 L (12.0-16.0) g/dL Hct 26.9 L (36-46) % SARS-CoV-2 (PCR) (Negative) Blood Type Antibody Screen Antibody Identification Discharge Plan Departure Patient Disposition: Admitted to Surgery Clinical Impression: Vaginal bleeding, , missed Admit Date/Time: 10/09/21 04:35 Admit Provider: Kendall Maza
[2021-10-09 02:53] LABS: Hematocrit 29.2 % (36-46); Hemoglobin 9.9 g/dL (12.0-16.0)
[2021-10-09 03:21] LABS: COVID19 -Nasal RAPID Negative (Negative)
[2021-10-09] MEDS: TRANEXAMIC ACID 1,000 MG in SODIUM CHLORIDE 0.9% 100 ML 200 ML IV (03:23)
[2021-10-09] MEDS: OXYTOCIN 10 UNIT/ML VIAL IM (03:34)
[2021-10-09] MEDS: METHYLERGONOVINE 0.2 MG/ML VIAL IM (03:34)
--- NOTE | 2021-10-09 03:58 | DI.US.S_ITS ---
PROCEDURE: US PELVIC LIMITED INDICATIONS: significant vaginal bleeding TECHNIQUE: Real-time transabdominal scanning was performed of the pelvic organs, with image documentation. COMPARISON: None. FINDINGS: Uterus: Uterus is anteverted and measures 12.3 x 4.4 x 5.6 cm. The endometrium is thickened and heterogeneous in appearance, measuring up to 2.0 cm in with. No internal vascularity within the endometrium. No intrauterine identified. Ovaries: The ovaries were not visualized. No adnexal masses identified. Other: There is minimal free fluid in the pelvis which appears within physiologic limits. IMPRESSION: 1. Heterogeneous thickening of the endometrium likely reflecting blood product and a possible spontaneous in progress. Recommend correlation clinically including with serial beta HCGs. 2. No intrauterine identified. No definite adnexal mass visualized. An ectopic cannot be fully excluded. Recommend clinical follow-up. We strive to produce accurate, complete, and clear reports of imaging services. To assist us in improving patient care, this report was composed using standard report templates and voice recognition software. Therefore, it may contain abnormal punctuation, insertions and/or omissions. Occasional wrong-word or sound-alike substitutions may occur. Though we review the report and make efforts to correct it, we do recommend that the report be read carefully in proper context to recognize any text inaccuracies. Dictated by: Ming Ulloa M.D. on 10/09/2021 at 10:18 Approved by: Ming Ulloa M.D. on 10/09/2021 at 10:23
[2021-10-09 04:20] LABS: Hematocrit 26.9 % (36-46); Hemoglobin 9.4 g/dL (12.0-16.0)
--- NOTE | 2021-10-09 04:25 | PM.GYNHP.1 ---
History of Present Illness History of Present Illness Reason for admission: early complication Narrative: Yasmeen Rolle is a 46 year old A1 LMP 07/25/2021, PAULINA 05/01/2021 now at 10+6 weeks EGA who presented last evening with heavy vaginal bleeding and passage of tissue. Unfortunately after initial stabilization and discharge from the ED, her bleeding resumed and has become heavier with orthostatic changes and significant drop in her H&H from 12.4/35.6 to 9.4/26.9. Pelvic US shows no IUP but markedly thickened complex appearing endometrial tissue c/w either clot or retained POC's. BT O NEG w/ + ABS due to Rhogam. [facility] Medical History delivery delivered Gestational diabetes Healthy adult Rh negative status during Surgical History [place] teeth extracted Family History Mother Preeclampsia Insulin resistance Father Status post cardiac surgery infant Myocardial infarction Grandmother No problems noted. Grandfather Emphysema lung Smoker Grandmother Cervical cancer Grandfather Family history unknown Social History marital status: (FOB is new partner: Ayden) number of children: 2 household members: significant other and family (FOB's mother) lives independently: Yes caregiver/support person: No housing: house pets and animals: Yes (1 dog: safe/aware.) education level: college ([employer] Services [employer]) occupational status: unemployed ([employer].) current occupational exposures/hazards: No special dante needs: No seatbelt use: always do you feel safe at home: Yes Smoking Status: Former smoker Tobacco: How many years used: 5 quit status: has quit before second hand exposure: Yes (Boyfriend: occasional cigar outside.) alcohol intake: former (Pre-: maybe twice a month, a glass or two. ) substance use type: does not use during the past year weight has: remained stable well-balanced diet: daily or most days daily servings fruits/ve or more times/day caffeine: No (Quit coffee with . ) Type(s) of exercise: walking and regular exercise (15 minute routine with FOBs mother ) frequency: daily duration: 30-45 minutes/day Meds Home Medications and Allergies Home Medications Medication Instructions Recorded Confirmed Type ondansetron 4 mg disintegrating 4 mg PO Q6H PRN #10 tab 08/19/20 Rx tablet prenat.vits,marcos,[id number] 1 tab PO DAILY 10/06/21 10/06/21 History Allergies Allergy/AdvReac Type Severity Reaction Status Date / Time No Known Drug Allergies Allergy Verified 10/08/21 17:50 Review of Systems Review of Systems Narrative: Problem-specific ROS positives included in HPI Exam Vital Signs (past 8 hours): - 10/09/21 02:25 Temperature 97.7 F Pulse Rate 86 Respiratory Rate 17 Blood Pressure 95/49 L Pulse Oximetry 100 Oxygen Delivery Method Room Air Const General: cooperative, acute distress and anxious Nutritional Appearance: average body habitus Orientation: alert and oriented x3 HENMT Head: normal to inspection, atraumatic and abrasion Ears: hearing grossly normal bilaterally Nose: external nose normal Face and sinus: face symmetric Mouth: oral mucosae normal Teeth and gingiva: dentition normal Throat: posterior oropharynx normal Eyes General: appearance normal, both eyes and all related structures Conjunctivae: conjunctivae normal Sclera: sclerae normal EOM: EOM intact bilaterally Neck Neck: normal visual inspection Resp Effort & Inspection: normal respiratory effort and able to speak in complete sentences Auscultation: clear to auscultation bilaterally Cardio Rate: regular rate Rhythm: regular rhythm Heart Sounds: S1 normal, S2 normal and no murmurs GI Inspection: normal to inspection Palpation: soft and no hepatosplenomegaly External Female Exam: normal external appearance and other (Blood @ introitus) Speculum Exam - Vagina: abnormal vaginal discharge (BRB and clots PV) Speculum Exam - Cervix: other (Unable to visualize due to blood) Bimanual Exam- Vagina & Uterus: other (Deferred due to patient discomfort) Bimanual Exam- Adnexa, other: other (Deferred due to patient discomfort) Extrem General: no calf tenderness Psych Appearance: grossly normal Mental Status: mental status grossly normal Speech and Movement: speech and movement normal Mood: anxious mood Affect: normal affect Attitude: guarded Thought Process: normal Thought Content: normal Judgment: judgment good Objective Labs Result Diagrams: 10/09/21 04:15 Labs: Laboratory Results - last 24 hr 10/09/21 10/09/21 10/09/21 02:35 02:35 03:05 Hgb 9.9 L Hct 29.2 L SARS-CoV-2 (PCR) Negative Blood Type O Negative Antibody Screen Positive Antibody Identification Anti-D 10/09/21 04:15 Hgb 9.4 L Hct 26.9 L SARS-CoV-2 (PCR) Blood Type Antibody Screen Antibody Identification Assessment & Plan Assessment and plan (1) Incomplete with complication: Status: Acute (2) Anemia due to blood loss, acute: Status: Acute Plan The patient was counseled regarding alternatives, risks, benefits, and potential complications associated with suction curettage of the uterus. The patient is understandably concerned about having to undergo surgery and general anesthesia but was reassured. Repeat U/S again confirms retained products and/or clots within the uterine cavity. Will proceed to OR for suction curettage on an emergent basis. Time Spent With Patient Time with patient: 30 to 49 minutes with 50% spent counseling/coordinating care
--- NOTE | 2021-10-09 04:52 | PM.PREOP ---
Pre-operative Note COVID-19 COVID-19 status: Negative Result date/Date tested (Pos, Neg/Pending): 10/09/21 Interval Note History & Physical reviewed/Exam performed by Physician: Yes Changes to H&P: No
[2021-10-09] MEDS: LACTATED RINGERS 1,000 ML 100 ML IV (05:13)
--- NOTE | 2021-10-09 05:23 | SUR.OPER ---
Lithotomy on padded OR bed, head on pillow, arms secured on padded arm boards at <90 degrees abduction. Legs secured in padded yellow fins stirrups.
[2021-10-09] MEDS: CEFAZOLIN 2 GM/20 ML SYRINGE IV (05:41)
--- NOTE | 2021-10-09 06:15 | PM.GYNOP.1 ---
Operative Date/Time/Diagnoses Date of procedure: 10/09/21 Time of procedure: 05:30 Pre-op diagnosis: Incomplete w/ anemia due to acute blood loss Post-op diagnosis: same (Surgically completed) Procedure & Clinicians Procedure: Procedures Operation Date: 10/09/21 04:45 Actual Procedure Side Surgeon rick Dilation and Curettage Kendall Maza MD Indications: Yasmeen Rolle is a 46 year old A1 LMP 07/25/2021, PAULINA 05/01/2021 now at 10+6 weeks EGA who presented last evening with heavy vaginal bleeding and passage of tissue.? Unfortunately after initial stabilization and discharge from the ED, her bleeding resumed and has become heavier with orthostatic changes and significant drop in her H&H from 12.4/35.6 to 9.4/26.9.? Pelvic US shows no IUP but markedly thickened complex appearing endometrial tissue c/w either clot or retained POC's.? BT? O NEG w/ + ABS due to Rhogam. Surgeon: Kendall Maza Anesthesia Type: General Operative Notes Findings: Abundant retained POC's. Uterus 8 week prior to and following evacuation. Closure Type: not applicable Specimen(s): products of conception Estimated blood loss (mL): 100 Blood products transfused: none Procedure in detail: With the patient under satisfactory general endotracheal anesthesia in the modified dorsal lithotomy position, perineum vagina and lower abdomen were prepped and draped in the usual fashion for vaginal surgery. A pre-surgical safety time-out was then taken in accordance with [facility] OR protocols. A bivalve speculum was inserted in the vagina and clots a vacuum weighted from the vaginal vault. A large aggregate of products of conception were seen at the os and removed with ring forceps. The anterior lip of the cervix was then grasped with a ring forceps and suction curettage of the endometrial cavity was accomplished easily with an 11 mm curved curette. Once the complete evacuation of the uterus was assured, the ring forcep was removed from the cervix and the speculum removed from the vagina. Bleeding at this point was negligible and the operation was terminated by waking the patient in transfer to the PACU for a period of observation and recovery. Patient tolerated the procedure well and no complications were experienced. Complications: none Post-operative Condition: stable Disposition: PACU Plan for aftercare: Routine postoperative care with follow-up to be arranged in 2 weeks.
--- NOTE | 2021-10-09 06:59 | SUR.PHASEI ---
Late Entry: 0601 - Pt received to PACU after general anesthesia. Airway patent, self maintained. Report received from EVAN Romero and Dr Torres. 0635 - LR with 20 units pitocin infused.
== END 2021-10-09 06:43 | disposition home or self-care (01) ==
LOC: ED 03:51 → AC 04:36
PROVIDERS: Admitting Provider Obstetrics & Gynecology; Emergency Provider Emergency Medicine; Referring Provider Emergency Medicine; Visit Provider Obstetrics & Gynecology
PROC: (CPT 58120; principal; 2021-10-09 04:45)
DX: O03.1 Delayed or excessive hemorrhage following incomplete spontaneous abortion (principal); D62 Acute posthemorrhagic anemia; N93.9 Abnormal uterine and vaginal bleeding, unspecified; Z3A.11 11 weeks gestation of pregnancy; Z20.822 Contact with and (suspected) exposure to COVID-19
CPT/HCPCS: 59812; 36415; 76830; 76856; 85014; 85018; 86850; 86870; 86900; 86901; 87635; 96361; 96365; 96372; 96375; 99284; 99285; C9803; G0378; J0690; J1100; J2210; J2250; J2405; J2590; J2704; J2765; J3010

== ENCOUNTER 2023-07-30 10:10 | Emergency (ER) | payer OTHER, MEDICAID, SELFPAY ==
[2023-07-30 10:14] VITALS: BP 133/73; PULSE 90; RESP 14; TEMP 36.8; O2SAT 100; BMI 22.8
--- NOTE | 2023-07-30 10:29 | ED.GENADULT ---
HPI - General Adult General Chief complaint: Dental/Oral Stated complaint: tooth abscess Time Seen by Provider: 07/30/23 10:21 Source: patient Mode of arrival: Ambulatory Limitations: no limitations History of Present Illness HPI narrative: 39-year-old female who is here for evaluation of left lower tooth dental abscess. She knows that she has a broken tooth in this area. She is not been to a dentist for definitive treatment. For the past couple days she is noticed increasing pain and some swelling around the tooth. No problems swallowing. No problems breathing. No fevers. Related Data Home Medications Medication Instructions Recorded Confirmed prenat.vits,marcos,[id number] 1 tab PO DAILY 10/06/21 10/06/21 Previous Rx's Medication Instructions Recorded ondansetron 4 mg disintegrating 4 mg PO Q6H PRN nausea and 08/19/20 tablet vomiting #10 tabs penicillin V potassium 500 mg 500 mg PO QID 10 days #40 tabs 07/30/23 tablet Allergies Allergy/AdvReac Type Severity Reaction Status Date / Time No Known Drug Allergies Allergy Verified 07/30/23 10:17 Review of Systems Constitutional Constitutional: Reports system reviewed and no additional complaints, except as documented ENT Ears, Nose, Mouth, and Throat: Reports system reviewed and no additional complaints, except as documented Integumentary/Breasts Skin/Breast: Reports system reviewed and no additional complaints, except as documented Patient History Medical History delivery delivered Gestational diabetes Healthy adult Rh negative status during Surgical History Anesthesia History of section Ponder teeth extracted Family History Mother Preeclampsia Insulin resistance Father Status post cardiac surgery Myocardial infarction Grandmother No problems noted. Grandfather Emphysema lung Smoker Grandmother Cervical cancer Grandfather Family history unknown Social History marital status: (FOB is new partner: Ayden) number of children: 2 household members: significant other and family lives independently: Yes caregiver/support person: No housing: house pets and animals: Yes (1 dog: safe/aware.) education level: college ([employer] Services [employer]) occupational status: unemployed ([employer].) current occupational exposures/hazards: No special dante needs: No seatbelt use: always do you feel safe at home: Yes Smoking Status: Former smoker Tobacco: How many years used: 5 quit status: has quit before second hand exposure: Yes (Boyfriend: occasional cigar outside.) alcohol intake: former substance use type: does not use during the past year weight has: remained stable well-balanced diet: daily or most days daily servings fruits/ve or more times/day caffeine: No (Quit coffee with . ) Type(s) of exercise: walking and regular exercise (15 minute routine with FOBs mother ) frequency: daily duration: 30-45 minutes/day Smoking Status: Former smoker alcohol intake frequency: a few times a month Substance Use Type: does not use Exam Initial Vital Signs Initial Vital Signs: Vital Signs Temperature 98.2 F 07/30/23 10:14 Pulse Rate 90 07/30/23 10:14 Respiratory Rate 14 07/30/23 10:14 Blood Pressure 133/73 07/30/23 10:14 Pulse Oximetry 100 07/30/23 10:14 Oxygen Delivery Method Room Air 07/30/23 10:14 HENMT Mouth: oral mucosae normal Teeth and gingiva: other (Left lower 1st molar fractured tooth with small abscess) Skin General: no rashes or lesions noted Procedures Abscess I/D I&D #1: Site: oral Side (if applicable): left Technique: needle aspiration Course Vital Signs Vital signs: Vital Signs - 8 hr 07/30/23 10:14 Temperature 98.2 F Pulse Rate 90 Respiratory Rate 14 Blood Pressure 133/73 Pulse Oximetry 100 Oxygen Delivery Method Room Air Medical Decision Making [facility] Narrative Medical decision making narrative: Patient does have what appears to be a small abscess of the left lower 1st molar and this to this fractured. Needle aspiration was able to remove a very small amount of purulent material and it was draining afterwards. We will place the patient on antibiotics. She does understand that she ultimately will need to see a dentist. She was given return precautions. She expressed understanding and agreement. Discharge Plan Departure Patient Disposition: Home Clinical Impression: Dental abscess Instructions: Tooth Abscess Activity Restrictions/Additional Instructions: It is important that you take the antibiotics as directed. You can take Tylenol or ibuprofen for discomfort. You were ultimately going to need to see a dentist for definitive treatment of your fractured tooth. Turned to the emergency department for new symptoms. Prescriptions: New penicillin V potassium 500 mg tablet 500 mg PO QID 10 Days Qty: 40 0RF No Action prenat.vits,marcos,[id number] Tablet 1 tab PO DAILY ondansetron 4 mg tablet,disintegrating 4 mg PO Q6H PRN (Reason: nausea and vomiting) Qty: 10 0RF Referrals: Miscellaneous,Doctor, MD [Primary Care Provider] - Stand Alone Forms: Patient Portal/API
== END 2023-07-30 10:35 | disposition home or self-care (01) ==
PROVIDERS: Emergency Provider Emergency Medicine
DX: K04.7 Periapical abscess without sinus (principal)
CPT/HCPCS: 10060; 99281; 99283